=== PATIENT | female | born 1960 | race American Indian/Alaskan Native ===

== ENCOUNTER 2017-10-10 01:30 | Emergency (ER) | payer BC ==
[2017-10-10] MEDS ORDERED: ASPIRIN PO ONE (01:49)
[2017-10-10 02:29] LABS: Basophils % (Auto) 0.8 % (0.0-1.8); Eosinophils # (Auto) 0.1 K/mm3 (0.0-0.4); Eosinophils % (Auto) 3.2 % (0.0-4.3); Hematocrit 41.7 % (30.3-42.9); Hemoglobin 13.8 gm/dl (10.1-14.3); Lymphocytes # (Auto) 1.6 K/mm3 (1.2-5.4); Mean Corpuscular HGB Conc 33 % (30-34); Mean Corpuscular Hemoglobin 30 pg (28-32); Mean Corpuscular Volume 89 fl (79-97); Monocytes # (Auto) 0.4 K/mm3 (0.0-0.8); Monocytes % (Auto) 9.1 % (0.0-7.3); Platelet Count 155 K/mm3 (140-440); Red Blood Count 4.67 M/mm3 (3.65-5.03); Red Cell Distribution Width 14.8 % (13.2-15.2)
[2017-10-10 02:47] LABS: BUN/Creatinine Ratio 16; Blood Urea Nitrogen 11 mg/dL (7-17); Calcium 9.2 mg/dL (8.4-10.2); Hemolysis Index 10
[2017-10-10] MEDS ORDERED: TORADOL IV ONE (11:09)
[2017-10-10] MEDS ORDERED: NACL 0.9% 500 ML 500 ML IV ONE (11:09)
--- NOTE | 2017-10-10 11:45 | Emergency Department Report ---
HPI - General Chief Complaint: Arrhythmia/Palpitations Time Seen by Provider: 10/10/17 10:32 - HPI HPI: The patient is a 57-year-old female who presents for evaluation of chest pain. The patient reports chest pain since yesterday, constant, 8/10 severity, radiating to the left arm, exacerbated with movement of the left arm. She reports associated palpitations. The patient denies fever, trauma to the chest , cough, syncope, hemoptysis, unilateral leg swelling, hormone use, recent immobilization, history of DVT or PE, recent cancer. 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 - Social History Smoking Status: Never Smoker Substance Use Type: Alcohol - Medications Home Medications: Home Medications Medication Instructions Recorded Confirmed Last Taken Type Docusate Sodium [Colace] 100 mg PO DAILY 03/26/15 03/26/15 03/25/15 History Esomeprazole Magnesium [NexIUM] 40 mg PO QDAY 03/26/15 03/26/15 03/25/15 History Lisinopril [Zestril] 10 mg PO QDAY 03/26/15 03/26/15 03/25/15 History Mesalamine [Apriso] 0.375 gm PO DAILY 03/26/15 03/26/15 03/25/15 History Verapamil [Calan] 120 mg PO TID 03/26/15 03/26/15 03/25/15 History Cyclobenzaprine HCl [Flexeril 5 MG 5 mg PO TID #12 tab 10/10/17 Unknown Rx TAB] ED Review of Systems ROS: Stated complaint: CHEST FLUTIERING Other details as noted in HPI Constitutional: denies: fever ENT: denies: throat or neck pain Respiratory: reports cough Cardiovascular: reports: chest pain Endocrine: denies unexplained weight loss or gain Gastrointestinal: denies: abdominal pain, nausea Genitourinary: denies: dysuria Musculoskeletal: denies: leg swelling Skin: denies: rash Neurological: denies: headache Hematological/Lymphatic: denies: easy bleeding or easy bruising Psych: denies sadness or hopelessness Physical Exam - Physical Exam Vital Signs: Vital Signs 10/10/17 01:45 Temperature 98.2 F Pulse Rate 100 H Respiratory 18 Rate Blood Pressure 169/86 O2 Sat by Pulse 100 Oximetry Physical Exam: General: well-nourished, well-developed, no acute distress Head: Normocephalic, atraumatic Eyes: normal sclera ENT: Mucous membranes are pale and dry Neck: No neck stiffness, no cervical adenopathy Respiratory: Breath sounds equal bilaterally, no wheezing, rales, or rhonchi Cardio: S1 and S2 present, no murmurs, rubs, gallops, capillary refill is delayed Abdomen: Normoactive bowel sounds, soft abdomen, no rigidity, no guarding or rebound tenderness Chest WALL/Back: No tenderness to palpation of the chest wall, no CVA tenderness with percussion Musc: No pitting edema Skin: No rash Neuro: no facial drooping, normal speech Psych: Normal affect ED Course Vital Signs 10/10/17 01:45 Temperature 98.2 F Pulse Rate 100 H Respiratory 18 Rate Blood Pressure 169/86 O2 Sat by Pulse 100 Oximetry ED Medical Decision Making - Lab Data Result diagrams: 10/10/17 02:02 10/10/17 02:02 - Medical Decision Making The patient was seen and examined by myself. The patient is placed on a cardiac cath tech and continuous pulse ox. On initial evaluation, the patient was found to be in no distress. EKG was negative for findings suggestive of acute cardiac infarct. Labs and imaging are obtained. The patient is given a return of her pain and 500cc normal saline fluid bolus for treatment of her dehydration. Chest x-ray is negative for pneumothorax, focal consolidation, pulmonary vascular congestion, pleural effusion, or other obvious acute cardiopulmonary disease process. Lab results were non-concerning including levels of troponin, WBC, hemoglobin, hematocrit, electrolytes, renal function. The patient was reevaluated and reported that their symptoms were markedly improved. As the patient has a SAMIR risk score less than 2, and a well's score less than 2, the patient is at low risk of ACS or pulmonary emboli etiology of their symptoms. The patient is stable for discharge with outpatient follow-up. The patient is given follow-up and return instructions. The patient expressed understanding and agreed with the plan. The patient is discharged in stable condition. Critical care attestation.: If time is entered above; I have spent that time in minutes in the direct care of this critically ill patient, excluding procedure time. ED Disposition Clinical Impression: Palpitations, Dehydration, Arm pain, left, Acute chest pain Disposition: - TO HOME OR SELFCARE Is pt being admited?: No Does the pt Need Aspirin: No Condition: Stable Instructions: Chest Pain (ED), Palpitations (ED), Dehydration (ED), Musculoskeletal Pain (ED) Prescriptions: Cyclobenzaprine HCl [Flexeril 5 MG TAB] 5 mg PO TID #12 tab Referrals: BHARATHI KELLY MD [Primary Care Provider] - 3-5 Days Time of Disposition: 11:41
[2017-10-10 15:20] VITALS: BP 136/80
== END 2017-10-10 15:03 | disposition home or self-care (01) ==
LOC: ED 01:30
DX: R07.9 Chest pain, unspecified (principal); R00.2 Palpitations; M79.602 Pain in left arm; E86.0 Dehydration; K21.9 Gastro-esophageal reflux disease without esophagitis; I10 Essential (primary) hypertension
CPT/HCPCS: 36415; 80048; 84484; 85025; 93005; 93010; 96374; 99284; J1885; J7040